=== PATIENT | male | born 1985 | race Caucasian/White ===

== ENCOUNTER 2018-05-30 01:49 | Emergency (ER) | payer BC, OTHER ==
[2018-05-30 01:59] VITALS: BP 152/79; PULSE 52; TEMP 98.1; BMI 27.0
[2018-05-30] MEDS ORDERED: KETOROLAC TROMETHAMINE 15 MG/ML VIAL IVPUSH ONE (02:07)
[2018-05-30] MEDS ORDERED: KETOROLAC TROMETHAMINE 15 MG/ML VIAL ONE (02:07)
[2018-05-30] MEDS ORDERED: morphine CARPU-JECT 10 MG/1 ML DISP.SYRIN IVPUSH ONE ×2 (02:20→03:35)
[2018-05-30] MEDS ORDERED: morphine SULFATE 4 MG/ML VIAL ONE ×2 (02:21→03:33)
[2018-05-30] MEDS ORDERED: ONDANSETRON 4 MG/2 ML VIAL IVPB ONE (02:21)
[2018-05-30] MEDS ORDERED: ONDANSETRON 4 MG/2 ML VIAL ONE (02:22)
[2018-05-30 02:34] LABS: HEMATOCRIT 43.2 % (35.4-49); HEMOGLOBIN 14.5 GM/dL (11.7-16.9); MCH 30.6 pg (25.7-33.7); MCHC 33.5 g/dl (32.0-35.9); MEAN CELL VOLUME 91.4 fl (80-96); MEAN PLT VOLUME 7.7 fl (7.5-11.1); PLATELET COUNT 219 K/MM3 (134-434); RBC 4.73 M/mm3 (4.00-5.60); RDW 12.4 % (11.9-15.9); WHITE BLOOD COUNT 8.3 K/mm3 (4.0-10.0)
--- NOTE | 2018-05-30 02:34 | PDOC ---
History of Present Illness - General Chief Complaint: Pain, Acute Stated Complaint: LT FLANK PAIN Time Seen by Provider: 05/30/18 02:06 - History of Present Illness Initial Comments: 05/30/18 05:39 L flank pain x 6 hours radiating to suprapubic area severe, pressure urinated, defecated without relief has been drinking a lot of water + nausea no fever ros: otherwise negative pmh: negative fhx: noncontributory Past History - Past Medical History Allergies/Adverse Reactions: Allergies Allergy/AdvReac Type Severity Reaction Status Date / Time No Known Allergies Allergy Unverified 05/30/18 01:53 Home Medications: Ambulatory Orders Naproxen 500 mg PO BID PRN #12 tablet 05/30/18 Oxycodone HCl/Acetaminophen [Percocet 5-325 mg Tablet] 1 - 2 tab PO Q6H PRN #14 tab MDD 8 tabs 05/30/18 Tamsulosin HCl [Flomax] 0.4 mg PO DAILY #7 cap.er.24h 05/30/18 COPD: No - Suicide/Smoking/Psychosocial Hx Smoking History: Current every day smoker Number of Cigarettes Smoked Daily: 10 Information on smoking cessation initiated: Yes 'Breaking Loose' booklet given: 05/30/18 *Physical Exam - Vital Signs Last Vital Signs Temp Pulse Resp BP Pulse Ox 98.1 F 52 L 18 152/79 100 05/30/18 01:55 05/30/18 01:55 05/30/18 01:55 05/30/18 01:55 05/30/18 01:55 - Physical Exam General Appearance: Yes: Nourished, Appropriately Dressed HEENT: negative: Scleral Icterus (R), Scleral Icterus (L) Neck: negative: Lymphadenopathy (R), Lymphadenopathy (L) Respiratory/Chest: positive: Lungs Clear Cardiovascular: positive: Regular Rhythm Gastrointestinal/Abdominal: positive: Other (+ L CVAT). negative: Tender, Distended Male Genitalia: positive: normal genitalia Lymphatic: negative: Adenopathy Musculoskeletal: positive: Normal Inspection Extremity: positive: Normal Capillary Refill Integumentary: positive: Cold Neurologic: positive: Alert, Motor Strength 5/5 ED Treatment Course - LABORATORY CBC & Chemistry Diagram: 05/30/18 02:13 05/30/18 02:13 Medical Decision Making - Medical Decision Making 05/30/18 05:42 ureterocolic image analgesia 05/30/18 06:28 7mm distal stone mallet and die cutter ok pain controlled in ED ok for dc fu analgesia flomax *DC/Admit/Observation/Transfer Diagnosis at time of Disposition: Kidney stone - Discharge Dispostion Disposition: HOME Condition at time of disposition: Stable - Referrals Referrals: Sanchez Escobar MD [Staff Physician] - Curt Domingo MD [Staff Physician] - Valerio Carreno MD [Staff Physician] - - Patient Instructions Printed Discharge Instructions: Kidney Stones -- Adult - Post Discharge Activity
[2018-05-30 02:37] LABS: URINE APPEARANCE SLCLOUDY; URINE BILIRUBIN NEGATIVE (<2.0 mg/dL); URINE COLOR YELLOW; URINE GLUCOSE (UA) NEGATIVE (NEGATIVE); URINE KETONE 1+ (NEGATIVE); URINE LEUK ESTERASE 1+ (NEGATIVE); URINE NITRITE NEGATIVE (NEGATIVE); URINE PROTEIN 1+ (NEGATIVE); URINE UROBILINOGEN NEGATIVE mg/dL (0.2-1.0)
[2018-05-30 02:59] LABS: ALBUMIN 4.3 g/dl (3.4-5.0); ALK PHOS 67 U/L (45-117); ANION GAP 11 MMOL/L (8-16); BILIRUBIN,TOTAL 0.7 mg/dL (0.2-1); BLOOD UREA NITROGEN 18 mg/dL (7-18); CALCIUM 8.9 mg/dL (8.5-10.1); CHLORIDE 103 mmol/L (98-107); CO2 24 mmol/L (21-32); CREATININE 1.1 mg/dL (0.55-1.3); GLUCOSE,RANDOM 122 mg/dL (74-106); LIPASE 83 U/L (73-393); POTASSIUM 3.4 mmol/L (3.5-5.1); SGOT/AST 31 U/L (15-37); SGPT/ALT 27 U/L (13-61); SODIUM 137 mmol/L (136-145); TOT PROT 6.9 g/dl (6.4-8.2)
[2018-05-30 03:04] LABS: URINE MUCUS RARE
== END 2018-05-30 06:34 | disposition home or self-care (01) ==
LOC: FER 01:49
PROC: 3E0333Z Introduction of Anti-inflammatory into Peripheral Vein, Percutaneous Approach (ICD-10-PCS; principal; 2018-05-30)
PROC: 3E033NZ Introduction of Analgesics, Hypnotics, Sedatives into Peripheral Vein, Percutaneous Approach (ICD-10-PCS; 2018-05-30)
PROC: 3E033GC Introduction of Other Therapeutic Substance into Peripheral Vein, Percutaneous Approach (ICD-10-PCS; 2018-05-30)
DX: N20.0 Calculus of kidney (principal); F17.210 Nicotine dependence, cigarettes, uncomplicated
CPT/HCPCS: 36415; 74176-TC; 80053; 81003; 81015; 83690; 85027; 99283-25

== ENCOUNTER 2020-04-22 05:10 | Day surgery (SDC) | payer OTHER ==
--- OUTSIDE RECORDS SUMMARY | 2020-04-13 12:06 | XMS ---
:1985 Author Organization [facility] Support Name Relationship Address Phone [place] [address] [address] Unavailable [address] [place] [address]available [address] [place] [address] GARCÍA CORNELIUS MOTHER [address] [facility] [address] [facility] [place] [address] GARCÍA CORNELIUS Unavailable [address] [place] [address] Re-disclosure Warning The records that you are about to access may contain information from federally- assisted alcohol or drug abuse programs. If such information is present, then the following federally mandated warning applies: This information has been disclosed to you from records protected by federal confidentiality rules (42 CFR part 2). The federal rules prohibit you from making any further disclosure of this information unless further disclosure is expressly permitted by the written consent of the person to whom it pertains or as otherwise permitted by 42 CFR part 2. A general authorization for the release of medical or other information is NOT sufficient for this purpose. The Federal rules restrict any use of the information to criminally investigate or prosecute any alcohol or drug abuse patient.The records that you are about to access may contain highly sensitive health information, the redisclosure of which is protected by Article 27-F of the [facility] Public Health law. If you continue you may haveaccess to information: Regarding HIV / AIDS; Provided by facilities licensed or operated by the [facility] Office of Mental Health; or Provided by the [facility] Office for People With Developmental Disabilities. If such information is present, then the following [facility] mandated warning applies: This information has been disclosed to you from confidential records which are protected by state law. State law prohibits you from making any further disclosure of this information without the specific written consent of the person to whom it pertains, or as otherwise permitted by law. Any unauthorized further disclosure in violation of state law may result in a fine or chcf sentence or both. A general authorization for the release of medical or other information is NOT sufficient authorization for further disclosure. Insurance Providers Payer Policy type Policy ID Covered Covered republican's Policy Pl an name / Coverage republican ID relationship to [employer] [facility] [employer] CBP [id number] SP [id number] OUTPT BC PPO [id number] SP [id number] COVID-19 SP SP (BUS OFF USE ONLY) BC PPO [id number] SP [id number] [facility] CBP [id number] SP [id number] OUTPT Results ID Date Data Source [id number] 11/10/2019 12:38:00 PM EDT [facility] Name Value Range Interpretation Code Description Data Belinda rce(s) Supporting Document(s ) SARS-COV-2 [facility] This lab was ordered by [employer] and reported by [facility]. ID Date Data Source [id number] 10/16/2019 03:30:00 PM EDT [facility] Name Value Range Interpretation Description Data Sup porting Code Source(s) Document(s ) SARS [facility] CORONAVIRUS 2 RNA This lab was ordered by TABITH[facility] and reported by [facility]. Procedure
[2020-04-21 14:51] VITALS: BMI 29.0
--- NOTE | 2020-04-22 10:16 | HP ---
History & Physical Update - History History: No Change - Physical Physical: No Change - Assessment Assessment: No Change - Plan Plan: No Change
[2020-04-22] MEDS ORDERED: LIDOCAINE 1%/EPI 1:100000 (50 ML MULTI DOSE VIAL) ONE (10:20)
[2020-04-22] MEDS ORDERED: fentaNYL CITRATE 250 MCG/5 ML VIAL ONE (10:27)
[2020-04-22] MEDS ORDERED: MIDAZOLAM HCL 2 MG/2 ML SINGLE DOSE VIAL ONE ×2 (10:28)
[2020-04-22] MEDS ORDERED: LIDOCAINE 1%/EPI 1:100000 (20 ML MULTI DOSE VIAL) IJ ONE (11:01)
[2020-04-22] MEDS ORDERED: PROPOFOL 20 ML ONE (11:22)
[2020-04-22] MEDS ORDERED: DEXAMETHASONE SOD PHOSPHATE 4 MG/1 ML VIAL ONE (11:23)
[2020-04-22] MEDS ORDERED: KETOROLAC TROMETHAMINE 30 MG/1 ML VIAL ONE (11:23)
[2020-04-22] MEDS ORDERED: ceFAZolin SODIUM 1 GM VIAL ONE (11:23)
[2020-04-22] MEDS ORDERED: LIDOCAINE HCL/PF 2% SDV 5ML VIAL ONE (11:23)
[2020-04-22] MEDS ORDERED: BENZOIN/ALOE VERA/STORAX/TOLU 58 ML BOTTLE TP ONE (11:25)
--- NOTE | 2020-04-22 12:04 | OP ---
Operative Note - Note: Operative Date: 04/22/20 Pre-Operative Diagnosis: right occipital mass Operation: Excision, right occipital mass Findings: 3 cm fibrofatty mass/lipoma Post-Operative Diagnosis: Same as Pre-op Surgeon: Earnest Gottlieb Anesthesia: General (LMA) Specimens Removed: lipoma Estimated Blood Loss (mls): 5 Operative Report Dictated: Yes
[2020-04-22] MEDS ORDERED: oxyCODONE HCL 5 MG TABLET PO PRN (12:07)
[2020-04-22] MEDS ORDERED: ONDANSETRON 4 MG/2 ML VIAL IVPUSH PRN (12:07)
[2020-04-22] MEDS ORDERED: LACTATED RINGERS SOLUTION 1,000 ML IV SCH (12:15)
[2020-04-22 16:39] VITALS: BP 136/66; PULSE 60; TEMP 98.8
--- NOTE | 2020-04-24 11:18 | OP ---
DATE OF OPERATION: 04/22/2020 PROCEDURE: Excisional biopsy of right occipital mass. PREOPERATIVE DIAGNOSIS: Right occipital mass. POSTOPERATIVE DIAGNOSIS: Right occipital mass. SURGEON: Earnest Gottlieb MD ANESTHESIA: General by laryngeal mask airway. FINDINGS & PROCEDURE: This is a 34-year-old male who presents with a slowly growing soft tissue mass of the right occipital area which grew to about 3 cm in its widest diameter. The mass is smooth, movable with well-defined borders, so patient was advised elective removal of the mass and consent was obtained after discussing the risks, benefits and alternatives to the procedure. Patient was brought to the operating room and placed in the left lateral decubitus position. General anesthesia by laryngeal mask airway was then administered. The operative site was prepped and draped in usual sterile fashion. Using lidocaine 1% with epinephrine local anesthesia was then administered to the proposed incision sites. A 4 cm skin crease incision over the mass was made using scalpel blade No. 15 with dissection carried down to the subcutaneous tissue. Further dissection using Bovie cautery was done until the fibrofatty mass was completely exposed. Using blunt and sharp dissection with Bovie cautery and Metzenbaum scissors the mass was completely excised down to its attachment to the periosteum. Afterwards the wound was closed with interrupted Vicryl 3-0 suture for the superficial fascia and continuous subcuticular suture using Biosyn 4-0 for the skin. The wound closure was reinforced with Steri-Strips and covered with sterile dressing. Patient was successfully extubated and transferred to the postanesthesia care unit in satisfactory condition. Estimated blood loss was about 5 mL. Wound class clean. Neo DE [id number] MTDD
--- NOTE | 2020-04-25 13:25 | PATH ---
Surgical Pathology Report Patient Name: CEZAR CORNELIUS [facility]. Rec. #: [id number] /Age/Gender: 1985 (Age: 34) / M Account: [id number] Location: [facility] SURGICAL Taken: 04/22/2020 Received: 04/22/2020 Reported: 04/25/2020 Physicians: Earnest Gottlieb M.D. Specimen(s) Received OCCIPITAL MASS/LIPOMA Clinical History Right occipital mass Final Diagnosis OCCIPITAL MASS/LIPOMA, EXCISION: MATURE FIBROADIPOSE TISSUE CONSISTENT WITH LIPOMA. Electronically Signed Estrella Cunha M.D. Gross Description Received in formalin labeled "occipital mass/lipoma," is a 3.0 x 2.3 x 1.5 cm portion of yellow, lobulated adipose tissue. Sectioning reveals homogeneous yellow, smooth fat. No areas of hemorrhage or necrosis are identified. Senior Economist sections are submitted in 2 cassettes. /04/22/2020 saudi/04/22/2020
== END 2020-04-22 13:30 | disposition home or self-care (01) ==
LOC: JASU-SURG 05:10
PROVIDERS: ATTEND Surgery
PROC: 0JB00ZZ Excision of Scalp Subcutaneous Tissue and Fascia, Open Approach (ICD-10-PCS; principal; 2020-04-22 09:30)
DX: D21.0 Benign neoplasm of connective and other soft tissue of head, face and neck (principal)
CPT/HCPCS: 88304-TC; 94760

== ENCOUNTER 2021-02-23 04:22 | Emergency (ER) | payer OTHER ==
[2021-02-23 04:30] VITALS: BP 145/89; PULSE 79; TEMP 99.6; BMI 29.0
== END 2021-02-23 06:49 | disposition home or self-care (01) ==
LOC: FER 04:22
DX: S93.402A Sprain of unspecified ligament of left ankle, initial encounter (principal)
CPT/HCPCS: 73610-TC-LT-FY; 99284-25

== ENCOUNTER 2022-09-04 01:00 | Emergency (ER) | payer BC, OTHER ==
[2022-09-04] MEDS ORDERED: SODIUM CHLORIDE 0.9% 1000 ML INFUS.BAG IV ONE (01:13)
[2022-09-04] MEDS ORDERED: FAMOTIDINE 20 MG/50 ML IVPB 20 MG/50 ML MG IVPB ONE ×2 (01:13)
[2022-09-04] MEDS ORDERED: ONDANSETRON 4 MG/2 ML VIAL IVPUSH ONE (01:13)
[2022-09-04] MEDS ORDERED: ONDANSETRON 4 MG/2 ML VIAL ONE (01:13)
[2022-09-04 01:27] VITALS: BP 139/87; PULSE 84; RESP 18; TEMP 99.2; BMI 29.7
[2022-09-04 02:07] LABS: BASO % 0.5 % (0-2.0); HEMATOCRIT 44.5 % (35.4-49); HEMOGLOBIN 15.6 GM/dL (11.7-16.9); MCH 30.7 pg (25.7-33.7); MCHC 35.1 g/dl (32.0-35.9); MEAN CELL VOLUME 87.3 fl (80-96); MEAN PLT VOLUME 7.3 fl (7.5-11.1); MONO % 8.6 % (3.8-10.2); NEUT % 62.9 % (42.8-82.8); PLATELET COUNT 218 10^3/uL (134-434); RDW 12.4 % (11.9-15.9); WHITE BLOOD COUNT 4.8 K/mm3 (4.0-10.0)
[2022-09-04 02:27] LABS: ALBUMIN 4.1 g/dl (3.4-5.0); BLOOD UREA NITROGEN 20.7 mg/dL (7-18); CALCIUM 8.5 mg/dL (8.5-10.1)
[2022-09-04 02:32] LABS: BILIRUBIN,TOTAL 0.9 mg/dL (0.2-1); TOT PROT 7.3 g/dl (6.4-8.2)
== END 2022-09-04 03:55 | disposition home or self-care (01) ==
LOC: FER 01:00
PROC: 3E033GC Introduction of Other Therapeutic Substance into Peripheral Vein, Percutaneous Approach (ICD-10-PCS; principal; 2022-09-04)
DX: K52.9 Noninfective gastroenteritis and colitis, unspecified (principal)
CPT/HCPCS: 0241U-QW; 36415; 80053; 83690; 85025; 99284-25